=== PATIENT | male | born 1990 | race Caucasian/White ===

== ENCOUNTER 2017-09-16 08:16 | Emergency (ER) | payer OTHER, BC ==
--- NOTE | 2017-09-16 08:16 | EDPHY ---
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 He was transported by EMS with moderate to severe right-sided pain which was better after IV fentanyl by EMS. He did not hit his head or lose consciousness, no neck or back pain. No weakness or numbness in extremities. Pain in the right side is right is costal margin, worse with deep inspiration or movement or palpation. Started just after the fall. REVIEW OF SYSTEMS: Eye: no change in vision ENT: no sore throat Cardiac: No syncope Pulmonary: Not coughing, does have some shortness of breath Abdomen: No vomiting Musculoskeletal: no back pain or pain in extremities Skin: Right flank abrasion Neuro: no headache Constitutional: no fever : no urinary symptoms A comprehensive 10 point review of systems is otherwise negative aside from elements mentioned in the history of present illness. PAST MEDICAL HISTORY: Negative Social history: At work, no drugs or alcohol today General Appearance: Alert and conversant, cooperative. Eyes: No scleral icterus. ENT, Mouth: Normal mucous membranes. Respiratory: Breath sounds equal, no crepitus, but he is splinting because of pain. Cardiovascular: Regular rate and rhythm. Gastrointestinal: Right upper quadrant abdominal tenderness over the liver and the lower costal margin on the right. Neurological: Alert, face symmetric, normal motor and sensory in extremities. Follows commands. Normal speech. Skin: Right-sided abrasion at the costal margin in the mid axillary line, 2 cm. Musculoskeletal: No midline cervical thoracic or lumbar spine tenderness to palpation. No extremity tenderness to palpation. Pelvis stable. Psychiatric: Not agitated. Emergency Department course/MDM: On arrival patient states pain is 3/10 and tolerable. He does have tenderness over the liver, CT abdomen pelvis discussed and consented. Chest x-ray. 828: HCT 48, creat 1.1. 914: CT per Dr. Kebede shows right 8th rib fracture, normal liver, no solid organ injury from trauma. He incidentally has a enlarged appendix with appendicolith. Clinically the patient has no symptoms of appendicitis today. He has no abdominal tenderness. His symptoms only started after he fell down. Discussed with Dr. Dunn at this time recommends outpatient office follow- up for consideration for elective appendectomy. Results discussed with the patient at this time. Again has no right lower quadrant abdominal tenderness at this time. Constitutional: Initial Vital Signs Temperature (C) 36.7 C 09/16/17 08:23 Heart Rate 65 09/16/17 08:23 Respiratory Rate 16 09/16/17 08:23 Blood Pressure 126/66 H 09/16/17 08:23 O2 Sat (%) 97 09/16/17 08:23 O2 Delivery Mode Room Air Allergies/Adverse Reactions: No Known Allergies Allergy (Unverified 09/16/17 08:24) Medical Decision Making - Diagnostics Imaging Results: Imaging Impressions Chest X-Ray 09/16/17 08:23 Impression: 1. Nondisplaced right lateral eighth rib fracture. 2. Clear lungs. No pneumothorax. Imaging: Discussed imaging studies w/ field radio operator Radiologist Differential Diagnosis: Differential considered including but not limited to rib fracture, liver contusion, hemothorax, pneumothorax, kidney injury. - Data Points Laboratory Results: 09/16/17 08:27 POC Hgb 16.3 gm/dL gm/dL (13.7-17.5) POC Hct 48 % % (40-51) POC Sodium 141 mEq/L mEq/L (135-145) POC Potassium 3.9 mEq/L mEq/L (3.3-5.0) POC Chloride 101 mEq/L mEq/L (97-110) POC BUN 17 mg/dL mg/dL (7-23) POC Creatinine 1.1 mg/dL mg/dL (0.7-1.3) POC Glucose 93 mg/dL mg/dL (70-100) Point of Care Test Results: Chemistry 09/16/17 08:27 POC Sodium 141 mEq/L mEq/L (135-145) POC Potassium 3.9 mEq/L mEq/L (3.3-5.0) POC Chloride 101 mEq/L mEq/L (97-110) POC BUN 17 mg/dL mg/dL (7-23) POC Creatinine 1.1 mg/dL mg/dL (0.7-1.3) POC Glucose 93 mg/dL mg/dL (70-100) ISTAT H&H 09/16/17 08:27 POC Hgb 16.3 gm/dL gm/dL (13.7-17.5) POC Hct 48 % % (40-51) Departure - Departure Disposition: Home, Routine, Self-Care Clinical Impression: Closed rib fracture Qualifiers: Encounter type: initial encounter Rib fracture type: single rib Laterality: right Qualified Code(s): S22.31XA - Fracture of one rib, right side, initial encounter for closed fracture Condition: Good Instructions: Rib Fracture (ED) Additional Instructions: Right 8th rib fracture. Followup with work comp clinic tomorrow; off work today. Referrals: Work Comp Ref/Restrictions [Outside] - As per Instructions Porfirio Dunn MD [Medical Doctor] - As per Instructions (Please see this referral surgeon in the next [address] findings in your appendix.)
[2017-09-16] MEDS ORDERED: IOPAMIDOL (ISOVUE-300) 100 ML BTL ONE (08:34)
[2017-09-16] MEDS ORDERED: IBUPROFEN 800 MG TAB PO ONE ×2 (09:46→09:47)
[2017-09-16] MEDS ORDERED: OXYCODONE/APAP 5/325 TAB ONE (09:46)
[2017-09-16] MEDS ORDERED: OXYCODONE/APAP 5/325 TAB PO ONE (09:47)
[2017-09-16 09:59] VITALS: BP 121/76
== END 2017-09-16 09:45 | disposition home or self-care (01) ==
DX: S22.31XA Fracture of one rib, right side, initial encounter for closed fracture (principal); W01.0XXA Fall on same level from slipping, tripping and stumbling without subsequent striking against object, initial encounter; Y92.69 Other specified industrial and construction area as the place of occurrence of the external cause; Y99.0 Civilian activity done for income or pay; Y93.89 Activity, other specified
CPT/HCPCS: 82435-PO; 82565-PO; 82947-PO; 84132-PO; 84295-PO; 84520-PO; 85014-PO; Q9967